=== PATIENT | female | born 1955 | race Caucasian/White ===

== ENCOUNTER 2024-04-14 05:49 | Day surgery (SDC) | payer OTHER, SELFPAY ==
[2024-04-01 09:10] VITALS: BMI 28.4
--- NOTE | 2024-04-13 11:14 | WPDANESEPPF ---
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 Patient Data Age: 69 Gender: F Height: 1.65 m Weight: 77.5 kg Allergies Allergy/AdvReac Type Severity Reaction Status Date / Time morphine Allergy Unknown Unknown Verified 04/14/24 06:18 rosiglitazone [Avandia] Allergy Unknown pt Verified 04/14/24 06:18 reported adverse reaction to byproducts supervisor Home Medications Medication Instructions Recorded Confirmed Type duloxetine 60 mg capsule,delayed 60 mg PO DAILY 02/22/24 04/14/24 History release gabapentin 300 mg capsule 300 mg PO BID 02/22/24 04/14/24 History ondansetron HCl 4 mg tablet 4 mg PO Q6H PRN Nausea 02/22/24 04/14/24 History pantoprazole 40 mg tablet,delayed 40 mg PO DAILY 04/01/24 04/14/24 History release Patient hx anesthesia problems: none Family hx anesthesia problems: none Results Review: All pre-operative results and documents have been reviewed as part of the pre-operative evaluation. REPLACED BY [facility] Past Medical History Medical History (Updated 04/13/24 @ 11:15 by Noam Antonio DO) GERD (gastroesophageal reflux disease) Surgical History Surgical History (Updated 04/13/24 @ 11:15 by Noam Antonio DO) History of appendectomy History of Sophie-en-Y gastric bypass 2009 History of tubal ligation Family History Family History Father Malignant neoplasm of prostate Mother Family history of malignant neoplasm of breast in first degree relative Other Diabetes mellitus Family history of Alzheimer's disease Family history of kidney disease Family history of type 1 diabetes mellitus Social History Social History (Updated 02/22/24 @ 14:51 by Anne-Marie Chaudhary MA) Smoking status: Never smoker Second hand tobacco smoke exposure: Yes Alcohol intake: former Substance use type: does not use Current Housing: Decline to Answer Concerned About Future Housing: Decline to Answer Difficulty Paying Gas/Electric Bills: Decline to Answer Difficulty Paying for Meds: Decline to Answer Currently Unemployed: Decline to Answer Education: Decline to Answer Difficulty w/ Childcare or Family Care: Decline to Answer Living arrangements: alone Spiritual care concerns: No Anes - Eval Final PreProcedure Day of Procedure 04/13/24 11:14 Patient weight: overweight Heart: regular rate and rhythm Lungs: clear to auscultation Airway: Mallampati scale class II Neurological: alert and oriented Last oral intake: >/= 8 hours ASA classification: II Emergent: no Anesthetic plan: proceed Anesthesia type and monitoring: general LMA and standard monitoring Results Review: All pre-operative results and documents have been reviewed as part of the pre-operative evaluation. Informed Consent: The patient's anesthetic plan and its attendant risks and benefits were discussed with the patient/family/POA. Questions were solicited and answers provided to the satisfaction of the patient/family/POA.
[2024-04-14] VITALS (9 sets, daily range): BP systolic 123–155; BP diastolic 68–89; PULSE 67–83; RESP 10–18; TEMP 36.4–36.9; O2SAT 99–100; BMI 29.3
[2024-04-14] MEDS: LACTATED RINGERS 1,000 ML 30 ML IV CONT (06:43)
--- NOTE | 2024-04-14 06:51 | PM.HPGS ---
History of Present Illness History of Present Illness Chief complaint: Capsular Contracture of Breast Implants Narrative: Patient seen and examined in pre-operative holding area. No interval change in medical history or symptoms. Patient remembers previous discussion of benefits and alternatives to procedure. Continues to desire to proceed with bilateral breast implant remova and capsulectomy. I reviewed the risks including but not limited to bleeding ,infection, asymmetry, undesireable cosmetic appearance, partial/total skin loss, no change or worsening of symptoms, change in sensation. I discussed the possible use of assistants and their level of participation in the case. Patient stated understanding and signed the consent form wishing to proceed Review of Systems Review of Systems: All systems reviewed & are unremarkable except as noted in HPI and below PMFSH Past Medical History Medical History (Updated 04/13/24 @ 11:15 by Noam Antonio DO) GERD (gastroesophageal reflux disease) Surgical History Surgical History (Updated 04/13/24 @ 11:15 by Noam Antonio DO) History of appendectomy History of Sophie-en-Y gastric bypass 2009 History of tubal ligation Family History Family History Father Malignant neoplasm of prostate Mother Family history of malignant neoplasm of breast in first degree relative Other Diabetes mellitus Family history of Alzheimer's disease Family history of kidney disease Family history of type 1 diabetes mellitus Social History Social History (Updated 02/22/24 @ 14:51 by Anne-Marie Chaudhary MA) Smoking status: Never smoker Second hand tobacco smoke exposure: Yes Alcohol intake: former Substance use type: does not use Current Housing: Decline to Answer Concerned About Future Housing: Decline to Answer Difficulty Paying Gas/Electric Bills: Decline to Answer Difficulty Paying for Meds: Decline to Answer Currently Unemployed: Decline to Answer Education: Decline to Answer Difficulty w/ Childcare or Family Care: Decline to Answer Living arrangements: alone Spiritual care concerns: No Meds Home Medications and Allergies Home Medications Medication Instructions Recorded Confirmed Type duloxetine 60 mg capsule,delayed 60 mg PO DAILY 02/22/24 04/14/24 History release gabapentin 300 mg capsule 300 mg PO BID 02/22/24 04/14/24 History ondansetron HCl 4 mg tablet 4 mg PO Q6H PRN Nausea 02/22/24 04/14/24 History pantoprazole 40 mg tablet,delayed 40 mg PO DAILY 04/01/24 04/14/24 History release Allergies Allergy/AdvReac Type Severity Reaction Status Date / Time morphine Allergy Unknown Unknown Verified 04/14/24 06:18 rosiglitazone [Avandia] Allergy Unknown pt Verified 04/14/24 06:18 reported adverse reaction to racing board marker Vital Signs Vital Signs - 24 hr 04/14/24 06:26 Temperature 36.4 C L Pulse Rate 68 Respiratory Rate 16 Blood Pressure 136/89 Pulse Oximetry 99 Oxygen Delivery Room Air Exam Narrative: unchanged Assessment and Plan Assessment and plan (1) Capsular contracture of breast implant: Qualifiers: Encounter type: initial encounter Qualified Code(s): T85.44XA - Capsular contracture of breast implant, initial encounter Code(s): T85.44XA - Capsular contracture of breast implant, initial encounter Status: Acute Assessment and Plan: cont as above (2) Complication of breast implant: Code(s): T85.9XXA - Unspecified complication of internal prosthetic device, implant and graft, initial encounter Status: Acute
--- NOTE | 2024-04-14 06:52 | W.PM.PROC2 ---
Procedure Note - Detailed Date of Procedure 04/14/24 Pre-op Diagnosis Capsular Contracture of Breast Implants Post-op Diagnosis Same Procedure Performed b/l breast implant removal and capsulectomy Surgeon Frederick Quiñones MD [employer] maren soni pa-c Anesthesia General Description of Procedure Patient was seen in the preoperative holding area where the consent form was signed and the breasts were marked. She was taken back to the operating room and placed on the table in the supine position. Time-out was performed with Anesthesia, surgeon, and staff agreeing on patient's name, site, and surgery to be performed. SCDs were placed on the lower extremities and inflated. Antibiotics were given IV. After general anesthesia was administered the breasts were prepped and drap ed in usual sterile fashion. I took my attention to the left breast where I proceeded with making an incision along the inframammary fold around her previous healed incision through skin and dermis with a 15 blade scalpel. bovie cautery was used to dissect through subcutaneous tissue down to the capsule. I proceeded with using Bovie cautery to perform an EN bloc capsulectomy and implant removal noticing the implants were in a sub-pec position. After this was completed I irrigated with normal saline. A 10 Romansh BHUPENDRA drain was placed in the left breast cavity. 2-0 Vicryl was used to suture the pectoralis major back down the the chest wall to restore anatomy, maximize function and close down the space to reduce chance of seroma/hematoma. The incision was closed with 3-0 Vicryl for deep and dermis and 4-0 Monocryl for subcuticular closure. The drain was hooked to bulb suction I next took my attention to the right breast where a similar procedure was performed. I made my incision around her previous scar extending medially and laterally through skin and dermis with a 15 blade scalpel. Bovie cautery was used to go through subcutaneous tissue down to the capsule. I proceeded with right breast EN bloc capsulectomy. The pocket was irrigated with normal saline and a 10 Romansh BHUPENDRA drain was placed. The pec major was repaired and sewn to the chest wall with 2-0 vicryl suture to restore anatomy, maximize function and close down space . The skin was closed with 3-0 Vicryl and 4-0 Monocryl. A dressing of Mastisol, Steri-Strips, 4 x 4, Tegaderm, ABDs and a breast binder was then applied. The patient was then awakened from anesthesia and transferred to the recovery room in stable condition. Complications: None estimated blood loss: 10 cc disposition: Patient tolerated the procedure well will be going home later today. Maren Soni PA-C was essential for positioning, retraction, closure and dressing placement [facility] [place] Surgery - Charge Forward: Surgery Billing ([id number] same for maren batista )
[2024-04-14] MEDS: ceFAZolin SODIUM 2 GM/20 ML SW SYRINGE IV PUSH (07:27)
[2024-04-14] MEDS: LIDO 1%/EPINEPHRINE 1:100,000 50 ML VIAL 20 ML INFILTRATE (08:36)
[2024-04-14] MEDS: fentaNYL CITRATE INJ (*CRX) 100 MCG/2 ML VIAL 25 MCG IV PUSH ×4 (08:59→09:11)
[2024-04-14] MEDS: oxyCODONE HCL (*CRX) 5 MG TAB IR PO (09:51)
--- NOTE | 2024-04-14 11:10 | WPDANESPN ---
Anes - Prog Note Post-Op Date/Time: 04/14/24 11:10 Cardiovascular status: normal Respiratory status: normal Airway patency: baseline Mental status: baseline Post-Op hydration status: normal Vital Signs: Last Vital Signs Temp 36.9 C 04/14/24 08:47 Pulse 80 04/14/24 10:15 Resp 18 04/14/24 10:15 BP 123/68 04/14/24 10:15 Pulse Ox 100 04/14/24 10:00 O2 Del Method Room Air 04/14/24 10:15 O2 Flow Rate 8 04/14/24 09:00 Pain Score (VAS): 0 I/O: Intake & Output 04/13/24 04/14/24 04/14/24 23:59 07:59 15:59 Intake Total 100 Output Total 20 Balance 80 Post-procedural complaints: none Patient Feedback: Patient satisfied with anesthetic care. Other Findings: Patient vital signs back to baseline. Patient denies nausea and vomiting. Patient's pain under control. Patient OK for discharge.
== END 2024-04-14 10:22 | disposition home or self-care (01) ==
PROVIDERS: PCP Family Medicine; Visit Provider Plastic Surgery
PROC: 0HPT0JZ Removal of Synthetic Substitute from Right Breast, Open Approach (ICD-10-PCS; CPT 19371; principal; 2024-04-14 07:30)
DX: T85.44XA Capsular contracture of breast implant, initial encounter (principal)
CPT/HCPCS: 19371 ×2; 24341 ×2

== ENCOUNTER 2024-04-14 07:00 | Outpatient (NON) | payer SELFPAY | END 2024-04-14 07:01 | disposition home or self-care (01) | LOC: ANHLAB 04-15 08:32 | PROVIDERS: PCP Family Medicine; Visit Provider Plastic Surgery | DX: T85.9XXA Unspecified complication of internal prosthetic device, implant and graft, initial encounter (principal) | CPT/HCPCS: 88304 ==